=== PATIENT | female | born 1975 | race Caucasian/White ===

== ENCOUNTER 2017-12-23 14:29 | Outpatient (RCR) | payer BC, OTHER ==
[~2017-12-23 14:29] MED LIST: FERRIC CARBOXYMALTOSE (CANCER) 750 MG in NS (IVPB) 250 ML IV NR; IRON SUCROSE 100 MG/5 ML (VENOFER) VIAL CANCER CTR IV ONE
== END 2018-01-05 | disposition home or self-care (01) ==
LOC: ONC 14:29
PROVIDERS: ATTEND Internal Medicine Hematology & Oncology
DX: D50.9 Iron deficiency anemia, unspecified (principal); E53.8 Deficiency of other specified B group vitamins; E28.2 Polycystic ovarian syndrome; E05.00 Thyrotoxicosis with diffuse goiter without thyrotoxic crisis or storm; F32.9 Major depressive disorder, single episode, unspecified; E66.01 Morbid (severe) obesity due to excess calories; Z68.45 Body mass index [BMI] 70 or greater, adult; Z79.899 Other long term (current) drug therapy
CPT/HCPCS: 96365; 96374; 99213; 99214

== ENCOUNTER 2018-06-03 08:57 | Outpatient (RCR) | payer BC | END 2018-06-09 | disposition home or self-care (01) | LOC: ONC 08:57 | PROVIDERS: ATTEND Internal Medicine Hematology & Oncology | DX: D50.9 Iron deficiency anemia, unspecified (principal); E53.8 Deficiency of other specified B group vitamins; E28.2 Polycystic ovarian syndrome; E05.00 Thyrotoxicosis with diffuse goiter without thyrotoxic crisis or storm; F32.9 Major depressive disorder, single episode, unspecified; E66.01 Morbid (severe) obesity due to excess calories; Z68.45 Body mass index [BMI] 70 or greater, adult; Z79.899 Other long term (current) drug therapy | CPT/HCPCS: 99213 ==

== ENCOUNTER 2022-06-06 20:31 | Emergency (ER) | payer BC, OTHER ==
[~2022-06-06] VITALS: Ht 154.9 cm; Wt 172.5 kg
[2022-06-06] MEDS ORDERED: FAMOTIDINE 20 MG (PEPCID) TABLET PO STA (20:38)
--- NOTE | 2022-06-06 20:42 | ED General ---
General Stated Complaint: LOC Source of Information: Patient, EMS Exam Limitations: No Limitations History of Present Illness Date Seen by Provider: Jun 06, 2022 Time Seen by Provider: 20:33 Initial Comments 46-year-old female with past medical history most notable for hypothyroidism, anemia (baseline hemoglobin around 7), hypertension, and GERD coming in via EMS from home due to decreased responsiveness. The patient states she has been very stressed, has been taking care of some puppies that she recently had to give away, a cousin that had disappeared for 3-year showed up yesterday with twins and is staying with him, and the same cousin was cussing her out earlier. She says she has not really slept much due to the puppies in roughly 6 weeks. She was very tired and was closing her eyes. She says she could hear what everyone was saying but she did not feel like responding and felt very stressed out. They called EMS and she did not want to come. He is also endorsing some chest pressure that is been ongoing for some time as well which is very mild, nothing seems make better or worse, constant. She has a new primary physician that she saw earlier this week and things looked okay. She says they took her off lisinopril because her blood pressures have been fine. She is supposed to be on a water pill, but her lost insurance so she is unable to afford it. She is able to afford her thyroid medicine however. She is otherwise denying any shortness of breath, any real chest pain, abdominal pain, nausea, vomiting, diarrhea, focal weakness or numbness, vision changes, headache, neck stiffness, fever, dysuria, or any other concerns. EMS reports she was alert and oriented for them with no concerns. Glucose was 120 for them. Allergies and Home Medications Allergies Coded Allergies: No Known Drug Allergies (Unverified , 10/15/17) Patient Home Medication List Home Medication List Reviewed: Yes Review of Systems Review of Systems Constitutional: No fever EENTM: No blurred vision Respiratory: No cough Cardiovascular: No chest pain Gastrointestinal: No abdominal pain Genitourinary: no symptoms reported Musculoskeletal: no symptoms reported Skin: no symptoms reported Psychiatric/Neurological: See HPI Hematologic/Lymphatic: No Symptoms Reported Immunological/Allergic: no symptoms reported All Other Systems Reviewed Negative Unless Noted: Yes Past Xseiavu-Evixjv-[id number] Hx Patient Social History Tobacco Use?: No Past Medical History Surgeries: Yes (hernia) Physical Exam Vital Signs Vital Signs - First Documented 06/06/22 20:33 Temp 37.0 Pulse 104 Resp 20 B/P (MAP) 167/56 (93) Pulse Ox 98 O2 Delivery Room Air Capillary Refill : Height, Weight, BMI Height: '" Weight: lbs. oz. kg; BMI Method: General Appearance: No Apparent Distress, WD/WN, Obese Eyes: Bilateral Eye Normal Inspection HEENT: PERRL/EOMI, Normal ENT Inspection, Pharynx Normal Neck: Full Range of Motion, Normal Inspection, Non Tender, Supple Respiratory: Chest Non Tender, Lungs Clear, Normal Breath Sounds, No Accessory Muscle Use, No Respiratory Distress Cardiovascular: Regular Rate, Rhythm, No Edema, Normal Peripheral Pulses Gastrointestinal: Normal Bowel Sounds, Non Tender, Soft Back: Normal Inspection, No CVA Tenderness Extremity: Normal Capillary Refill, Normal Inspection, Normal Range of Motion, Non Tender, No Calf Tenderness, No Pedal Edema Neurologic/Psychiatric: Alert, Oriented x3, No Motor/Sensory Deficits, Normal Mood/Affect, e commerce developer II-XII Norm as Tested Skin: Normal Color, Warm/Dry Lymphatic: No Adenopathy Progress/Results/Core Measures Suspected Sepsis SIRS Temperature: Pulse: Respiratory Rate: Laboratory Tests 06/06/22 20:45: White Blood Count 8.1 Blood Pressure / Mean: Laboratory Tests 06/06/22 20:45: Creatinine 0.82, Platelet Count 353, Total Bilirubin 0.2 Results/Orders Lab Results Laboratory Tests Test 06/06/22 20:45 06/06/22 20:55 Range/Units White Blood Count 8.1 4.3-11.0 10^3/uL Red Blood Count 3.96 3.80-5.11 10^6/uL Hemoglobin 6.4 *L 11.5-16.0 g/dL Hematocrit 24 L 35-52 % Mean Corpuscular Volume 61 L 80-99 fL Mean Corpuscular Hemoglobin 16 L 25-34 pg Mean Corpuscular Hemoglobin Concent 27 L 32-36 g/dL Red Cell Distribution Width 21.0 H 10.0-14.5 % Platelet Count 353 130-400 10^3/uL Mean Platelet Volume 9.3 9.0-12.2 fL Immature Granulocyte % (Auto) 0 % Neutrophils (%) (Auto) 69 42-75 % Lymphocytes (%) (Auto) 20 12-44 % Monocytes (%) (Auto) 7 0-12 % Eosinophils (%) (Auto) 4 0-10 % Basophils (%) (Auto) 1 0-10 % Neutrophils # (Auto) 5.6 1.8-7.8 10^3/uL Lymphocytes # (Auto) 1.6 1.0-4.0 10^3/uL Monocytes # (Auto) 0.5 0.0-1.0 10^3/uL Eosinophils # (Auto) 0.3 0.0-0.3 10^3/uL Basophils # (Auto) 0.1 0.0-0.1 10^3/uL Immature Granulocyte # (Auto) 0.0 0.0-0.1 10^3/uL Sodium Level 142 135-145 MMOL/L Potassium Level 3.8 3.6-5.0 MMOL/L Chloride Level 108 H 98-107 MMOL/L Carbon Dioxide Level 22 21-32 MMOL/L Anion Gap 12 5-14 MMOL/L Blood Urea Nitrogen 15 7-18 MG/DL Creatinine 0.82 0.60-1.30 MG/DL Estimat Glomerular Filtration Rate 89 BUN/Creatinine Ratio 18 Glucose Level 115 H 70-105 MG/DL Calcium Level 8.6 8.5-10.1 MG/DL Corrected Calcium 8.8 8.5-10.1 MG/DL Total Bilirubin 0.2 0.1-1.0 MG/DL Aspartate Amino Transf (AST/SGOT) 12 5-34 U/L Alanine Aminotransferase (ALT/SGPT) 7 0-55 U/L Alkaline Phosphatase 93 40-136 U/L Troponin I < 0.30 <0.30 NG/ML Total Protein 6.5 6.4-8.2 GM/DL Albumin 3.8 3.2-4.5 GM/DL Influenza Type A (RT-PCR) Not Detected Not Detecte Influenza Type B (RT-PCR) Not Detected Not Detecte SARS-CoV-2 RNA (RT-PCR) Not Detected Not Detecte My Orders Orders - ROBERT KOHLI MD Cbc With Automated Diff (06/06/22 20:37) Chest 1 View Ap/Pa Only (06/06/22 20:37) Ekg Tracing (06/06/22 20:37) Comprehensive Metabolic Panel (06/06/22 20:37) O2 (06/06/22 20:37) Monitor-Rhythm Ecg Trace Only (06/06/22 20:37) Ed Iv/Invasive Line Start (06/06/22 20:37) Troponin I Fs (06/06/22 20:37) Lidocaine 2% Viscous 15 Ml (Xylocaine Vi (06/06/22 20:45) Famotidine Tablet (Pepcid Tablet) (06/06/22 20:38) Antacid Suspension (Mylanta Suspension (06/06/22 20:45) Aspirin Chewable Tablet (Baby Aspirin Ch (06/06/22 20:45) Covid 19 Inhouse Test (06/06/22 20:56) Influenza A And B By Pcr (06/06/22 20:56) Ondansetron Injection (Zofran Injectio (06/06/22 21:15) Medications Given in ED Current Medications Medications Dose Ordered Sig/Adela Route Start Time Stop Time Status Last Admin Dose Admin Al Hydrox/Mg Hydrox/Simethicone 30 ml ONCE ONCE PO 06/06/22 20:45 06/06/22 20:46 DC 06/06/22 20:45 30 ML Aspirin 324 mg ONCE ONCE PO 06/06/22 20:45 06/06/22 20:46 DC 06/06/22 20:45 324 MG Lidocaine HCl 15 ml ONCE ONCE PO 06/06/22 20:45 06/06/22 20:46 DC 06/06/22 20:45 15 ML Ondansetron HCl 4 mg ONCE ONCE IVP 06/06/22 21:15 06/06/22 21:16 DC 06/06/22 21:19 4 MG Vital Signs/I&O 06/06/22 06/06/22 20:33 20:33 Temp 37.0 Pulse 104 Resp 20 B/P (MAP) 167/56 (93) Pulse Ox 98 98 O2 Delivery Room Air Room Air Capillary Refill : Progress Note : Progress Note 46-year-old female with above history coming in due to decreased level of consciousness. Patient is normal and at her baseline on arrival here. She says she is very stressed, and when asked if this was an incident due to the stress and anxiety at home, she said yes that was. EKG with no acute ischemic changes. An IV was placed and basic labs were obtained, and her hemoglobin is around 6.4 today from around 7 which is her baseline. She says she is in contact with her doctor and they were talking about giving her transfusion this next week anyways. She is not hypotensive, not weak, and not showing any signs at this time of symptomatic anemia. Given this, I believe it is appropriate for her to wait another 48 hours before transfusion. She says in the past she is required iron transfusions and they are setting this up as well. She has no clinical signs of bleeding anywhere with normal stools as well. Labs otherwise unremarkable including negative troponin. Patient is at her baseline and I believe stable for discharge with outpatient follow-up. She was sent home with strict return precautions ECG Initial ECG Impression Date: Jun 06, 2022 Initial ECG Impression Time: 20:51 Initial ECG Rate: 99 Initial ECG Rhythm: Normal Sinus Comment Narrow QRS, normal axis, no significant ST changes or T wave abnormalities Diagnostic Imaging Diagonstic Imaging: Xray Plain Films/CT/US/NM/MRI: chest Comments X-ray on my interpretation with no obvious pneumonia, pneumothorax, normal cardiac silhouette Departure Impression Primary Impression: Anemia Qualified Codes: D50.8 - Other iron deficiency anemias Disposition: HOME, SELF-CARE Condition: Stable Departure-Patient Inst. Decision time for Depature: 21:30 Referrals: MERON COATES MD (PCP/Family) Primary Care Physician Patient Instructions: Anemia, Possibly From Low Iron, Adult ED Add. Discharge Instructions: You are very anemic, and its pretty close to where you were the other day. You are low enough that you would require a blood transfusion. Call your primary doctor on Wednesday to get this set up, he may want to do a repeat blood draw to make sure that it was accurate today. Work/School Note: Work Release Form Date Seen in the Emergency Department: Jun 06, 2022 Return to Work: Jun 08, 2022 Restrictions: No Restrictions ROBERT KOHLI MD Jun 06, 2022 20:42
[2022-06-06] MEDS ORDERED: ASPIRIN 81 MG CHEW (CHILDREN'S ASA) PO ONE (20:45)
[2022-06-06] MEDS ORDERED: ANTACID SUSP 30 ML UDC (MYLANTA) PO ONE (20:45)
[2022-06-06] MEDS ORDERED: LIDOCAINE 2% VISCOUS 15 ML UDC PO ONE (20:45)
[2022-06-06 20:48] LABS: BASOPHILS # (AUTO) 0.1 10^3/uL (0.0-0.1); BASOPHILS % (AUTO) 1 % (0-10); EOSINOPHILS # (AUTO) 0.3 10^3/uL (0.0-0.3); EOSINOPHILS % (AUTO) 4 % (0-10); HEMATOCRIT 24 % (35-52); LYMPHOCYTES # (AUTO) 1.6 10^3/uL (1.0-4.0); LYMPHOCYTES % (AUTO) 20 % (12-44); MEAN CORPUSCULAR HEMOGLOBIN 16 pg (25-34); MEAN CORPUSCULAR HGB CONC 27 g/dL (32-36); MEAN CORPUSCULAR VOLUME 61 fL (80-99); MEAN PLATELET VOLUME 9.3 fL (9.0-12.2); MONOCYTES # (AUTO) 0.5 10^3/uL (0.0-1.0); MONOCYTES % (AUTO) 7 % (0-12); NEUTROPHILS # (AUTO) 5.6 10^3/uL (1.8-7.8); NEUTROPHILS % (AUTO) 69 % (42-75); PLATELET COUNT 353 10^3/uL (130-400); WHITE BLOOD COUNT 8.1 10^3/uL (4.3-11.0)
[2022-06-06 20:51] LABS: HEMOGLOBIN 6.4 g/dL (11.5-16.0)
[2022-06-06 21:11] LABS: ALBUMIN 3.8 GM/DL (3.2-4.5); BILIRUBIN,TOTAL 0.2 MG/DL (0.1-1.0); CALCIUM 8.6 MG/DL (8.5-10.1); CREATININE SERUM 0.82 MG/DL (0.60-1.30); POTASSIUM 3.8 MMOL/L (3.6-5.0); TOTAL PROTEIN 6.5 GM/DL (6.4-8.2)
[2022-06-06] MEDS ORDERED: ONDANSETRON 4 MG/2 ML (SDV) Z0FRAN IVP ONE (21:15)
[2022-06-06 21:25] VITALS: BP 135/56
[2022-06-06] MEDS ORDERED: IBUP-1780 PO (21:41)
[2022-06-06] MEDS ORDERED: HYDR50TA6 PO (21:41)
[2022-06-06] MEDS ORDERED: MONT-40 PO (21:41)
[2022-06-06] MEDS ORDERED: LEVO150T96 PO (21:41)
[2022-06-06] MEDS ORDERED: PANT40TA52 PO (21:41)
[2022-06-06] MEDS ORDERED: CITA40TA13 PO (21:41)
--- NOTE | 2022-06-06 22:48 | Diagnostic Imaging Report ---
INDICATION: Chest pain. EXAMINATION: Chest 06/06/2022 Single view chest FINDINGS: The cardiomediastinal silhouette is unremarkable. The pulmonary vasculature is within normal limits. The lungs and pleural spaces are clear. IMPRESSION: No evidence of an acute cardiopulmonary process. Dictated by: Dictated on workstation # [id number]
== END 2022-06-06 21:25 | disposition home or self-care (01) ==
LOC: EDUNIT# 20:31 → ER FS 20:34
DX: D64.9 Anemia, unspecified (principal); E66.9 Obesity, unspecified; Z20.822 Contact with and (suspected) exposure to COVID-19
CPT/HCPCS: 36415; 71045; 80053; 84484; 85025; 87636; 93005; 93041